=== PATIENT | female | born 1980 | race Hispanic/Latino ===

== ENCOUNTER 2021-04-18 04:22 | Emergency (ER) | payer MEDICAID ==
[2021-04-18] MEDS ORDERED: TETANUS,DIPH,PERTUSS(ACELL) VACCINE 0.5 ML SYRINGE IM ONE (04:32)
[2021-04-18] MEDS ORDERED: LIDOCAINE (1%) 10 MG/1 ML VIAL 20 ML MDV INFILTRATI ONE ×2 (04:32→05:10)
[2021-04-18] MEDS ORDERED: SODIUM CHLORIDE 0.9% 500 ML 500 ML IV ONE (04:32)
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
[2021-04-18] MEDS ORDERED: LIDOCAINE PF 100 MG/5 ML (CARDIAC SYRINGE) IV ONE (04:37)
[2021-04-18] MEDS ORDERED: MORPHINE 4 MG/1 ML INJ IV ONE ×2 (04:39→09:47)
[2021-04-18 04:44] LABS: Basophils # (Auto) 0.1 K/mm3 (0.0-0.1); Basophils % (Auto) 0.7 % (0.0-1.8); Eosinophils # (Auto) 0.1 K/mm3 (0.0-0.4); Eosinophils % (Auto) 1.5 % (0.0-4.3); Hematocrit 42.8 % (30.3-42.9); Hemoglobin 13.8 gm/dl (10.1-14.3); Lymphocytes # (Auto) 2.8 K/mm3 (1.2-5.4); Lymphocytes % (Auto) 31.4 % (13.4-35.0); Mean Corpuscular HGB Conc 32 % (30-34); Mean Corpuscular Volume 94 fl (79-97); Monocytes # (Auto) 0.5 K/mm3 (0.0-0.8); Monocytes % (Auto) 5.7 % (0.0-7.3); Platelet Count 338 K/mm3 (140-440); Red Blood Count 4.58 M/mm3 (3.65-5.03)
[2021-04-18 04:55] LABS: INR 0.89 (0.87-1.13)
[2021-04-18 04:56] LABS: Partial Thromboplastin Time 24.3 Sec. (24.2-36.6)
[2021-04-18 04:59] LABS: Alanine Aminotransferase 29 units/L (7-56); Albumin 4.4 g/dL (3.9-5); BUN/Creatinine Ratio 11; Blood Urea Nitrogen 12 mg/dL (7-17); Calcium 9.4 mg/dL (8.4-10.2); Hemolysis Index 8
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
[2021-04-18] MEDS ORDERED: SODIUM CHLORIDE 0.9% 1000 ML 1,000 ML IV ONE (05:33)
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
[2021-04-18] MEDS ORDERED: SODIUM CHLORIDE 0.9% IRR 500 ML BOTTLE IR ONE (05:47)
[2021-04-18] MEDS: POTASSIUM CHLORIDE 10 MEQ 10 MEQ/100 ML BAG IV SCH ×2 (06:02→08:10)
[2021-04-18] MEDS ORDERED: MORPHINE 4 MG/1 ML INJ IV PRN (06:38)
[2021-04-18] MEDS ORDERED: ONDANSETRON 4 MG/2 ML INJ IV PRN (06:38)
[2021-04-18] MEDS ORDERED: BACITRACIN ZINC OINT 28.4 GM TP STA (06:38)
[2021-04-18 09:44] LABS: Hematocrit 39.6 % (30.3-42.9); Hemoglobin 13.3 gm/dl (10.1-14.3)
[2021-04-18 10:07] VITALS: BP 125/81
== END 2021-04-18 10:07 | disposition short-term general hospital (02) ==
LOC: ED 04:22
DX: S12.9XXA Fracture of neck, unspecified, initial encounter (principal); S01.81XA Laceration without foreign body of other part of head, initial encounter; S09.90XA Unspecified injury of head, initial encounter; K74.60 Unspecified cirrhosis of liver; F10.129 Alcohol abuse with intoxication, unspecified; R74.01 Elevation of levels of liver transaminase levels; X58.XXXA Exposure to other specified factors, initial encounter; Y93.89 Activity, other specified; Y92.89 Other specified places as the place of occurrence of the external cause; Y99.8 Other external cause status; Z88.5 Allergy status to narcotic agent
CPT/HCPCS: 12011; 36415; 70450; 70486; 71045; 71275; 72125; 72170; 74177; 80053; 82550; 84484; 84702; 85014; 85018; 85025; 85610; 85730; 90471; 90715; 93005; 96365; 96366; 96375; 96376; 99291; J2270; J3480; J3490; J7030; J7040; Q9967; 80320; Q0162; G0480; J2001